=== PATIENT | female | born 1970 | race African-American/Black ===

== ENCOUNTER 2016-11-06 03:18 | Emergency (ER) | payer OTHER ==
[~2016-11-06] VITALS: Ht 165.1 cm; Wt 98.4 kg
[2016-11-06] MEDS ORDERED: NEURONTIN600 MG PO (03:35)
[2016-11-06] MEDS ORDERED: CYMBALTA60 MG PO (03:36)
[2016-11-06] MEDS ORDERED: TRAMADOL 50 MG50 MG PO (03:36)
[2016-11-06] MEDS ORDERED: TOPROL XL100 MG PO (03:36)
[2016-11-06 03:40] LABS: ABSOLUTE NEUTROPHILS 3.6 thou/uL (1.4-8.2); BASOPHILS 1.1 % (0.0-2.0); EOSINOPHILS 5.5 % (0.0-3.0); HEMATOCRIT 31.2 % (37.0-47.0); HEMOGLOBIN 9.6 gm/dL (12.0-15.0); LYMPHOCYTES 38.6 % (24.0-44.0); MCH 22.8 pg (26.0-34.0); MCHC 30.8 g/dL (28.0-37.0); PLATELET COUNT 237 thou/uL (150-400); POLYS 48.8 % (36.0-66.0); RBC 4.22 mil/uL (4.20-5.00); RDW 17.3 % (10.5-14.5); WBC 7.5 thou/uL (4.0-11.0)
[2016-11-06 03:51] LABS: ANION GAP 7 mmol/L (7-16); BUN 16 mg/dL (7-18); CALCIUM 9.6 mg/dL (8.5-10.1); CHLORIDE 105 mmol/L (98-107); CO2 28 mmol/L (21-32); CREATININE 0.9 mg/dL (0.6-1.0); GLUCOSE 114 mg/dL (74-106); POTASSIUM 3.6 mmol/L (3.5-5.1); SODIUM 140 mmol/L (136-145)
[2016-11-06 03:52] LABS: MANUAL DIFF NO
[2016-11-06 03:57] LABS: ALBUMIN 3.6 g/dL (3.4-5.0); ALKALINE PHOSPHATASE 85 U/L (46-116); DIRECT BILIRUBIN < 0.1 mg/dL (<0.1-0.3); SGOT 18 U/L (15-37); SGPT 15 U/L (30-65); TOTAL BILIRUBIN 0.2 mg/dL (<0.1-1.0); TOTAL PROTEIN 7.8 g/dL (6.4-8.2)
[2016-11-06] MEDS ORDERED: CITRATE OF MAG296 ML PO (05:49)
[2016-11-06] MEDS ORDERED: SENNA8.6 MG PO (05:49)
[2016-11-06 06:13] LABS: ANISOCYTOSIS 1+; HYPOCHROMASIA 1+; MICROCYTES 1+
[2016-11-06 06:14] VITALS: BP 164/93
== END 2016-11-06 06:22 | disposition home or self-care (01) ==
LOC: ER 03:18
PROVIDERS: Emergency Medicine
DX: K59.00 Constipation, unspecified (principal); M79.7 Fibromyalgia; I10 Essential (primary) hypertension; F10.99 Alcohol use, unspecified with unspecified alcohol-induced disorder